=== PATIENT | female | born 1945 | race Caucasian/White ===

== ENCOUNTER 2024-11-05 12:48 | Emergency (ER) | payer MEDICARE ==
[~2024-11-05] VITALS: Ht 165.1 cm; Wt 75.6 kg
[2024-11-05] MEDS: OXYMETAZOLINE 0.05% NASAL SPRAY ONE (13:24)
[2024-11-05 13:56] LABS: PLATELET COUNT, AUTOMATED 292 10^3/uL (150-450)
[2024-11-05 14:30] VITALS: BP 141/83; TEMP 97.6; O2SAT 97
[2024-11-05] MEDS: SILVER NITRATE APPLICATOR (1 = QTY 10) TOP ONE (14:40)
[2024-11-05 14:49] LABS: INR 0.89
== END 2024-11-05 15:21 | disposition home or self-care (01) ==
LOC: M ED 12:48
DX: R04.0 Epistaxis (principal)